=== PATIENT | male | born 1950 | race Hispanic/Latino ===

== ENCOUNTER 2017-04-22 09:15 | Day surgery (SDC) | payer OTHER ==
[~2017-04-22] VITALS: Ht 167.6 cm; Wt 85.8 kg
[~2017-04-22 09:15] MED LIST: ACET-66 PO; CYAN1TAB68 SL; GUAI600T50 PO; PANT40TA25 PO; SIME125C PO; SODIUM CHLORIDE 0.9% 1000ML 1,000 ML IV ONE
[2017-04-22 10:07] VITALS: BP 117/69
[2017-04-22] MEDS ORDERED: PROPOFOL 10 MG/ML 20ML VIAL IV ONE (11:05)
[2017-04-22] MEDS ORDERED: FENTANYL CITRATE PF 50 MCG/1 ML 2ML VIAL ONE (11:06)
[2017-04-22 11:18] VITALS: BP 112/93
== END 2017-04-22 12:06 ==
LOC: DAH 09:15 → ENDO 09:15
PROVIDERS: ATTEND Internal Medicine Gastroenterology
DX: K22.8 Other specified diseases of esophagus (principal); K21.9 Gastro-esophageal reflux disease without esophagitis; N40.0 Benign prostatic hyperplasia without lower urinary tract symptoms; K51.90 Ulcerative colitis, unspecified, without complications; Z90.49 Acquired absence of other specified parts of digestive tract; Z79.899 Other long term (current) drug therapy
CPT/HCPCS: 43239; 88305; A4606; J2704; J3010; J7030

== ENCOUNTER 2021-07-17 21:22 | Emergency (ER) | payer OTHER ==
[~2021-07-17] VITALS: Ht 167.6 cm; Wt 96.2 kg
[~2021-07-17 21:22] MED LIST changes: -PANT40TA25 PO; -SODIUM CHLORIDE 0.9% 1000ML 1,000 ML IV ONE
[2021-07-17 21:28] VITALS: BP 157/78
[2021-07-17] MEDS ORDERED: LIDOCAINE HCL-MPF 1% 2ML VIAL ONE (21:45)
[2021-07-17] MEDS ORDERED: TETANUS/DIPHTHERIA TOXOID [ADULT] 0.5 ML VIAL IM ONE (22:00)
[2021-07-17] MEDS ORDERED: LIDOCAINE HCL 1% 20 ML VIAL INJ SCH (22:00)
[2021-07-17] MEDS ORDERED: IBUPROFEN 800 MG TAB PO ONE (22:00)
== END 2021-07-17 22:29 | disposition home or self-care (01) ==
LOC: EDH 21:22
DX: S01.81XA Laceration without foreign body of other part of head, initial encounter (principal); K21.9 Gastro-esophageal reflux disease without esophagitis; Z79.1 Long term (current) use of non-steroidal anti-inflammatories (NSAID); Z88.5 Allergy status to narcotic agent; Z90.49 Acquired absence of other specified parts of digestive tract; X58.XXXA Exposure to other specified factors, initial encounter; Y93.89 Activity, other specified; Y92.89 Other specified places as the place of occurrence of the external cause; Y99.8 Other external cause status
CPT/HCPCS: 12013; 90471; 90714; 99283; J3490

== ENCOUNTER 2021-07-25 17:55 | Emergency (ER) | payer OTHER ==
[~2021-07-25] VITALS: Ht 175.3 cm; Wt 93.0 kg
[2021-07-25 19:11] VITALS: BP 136/87
== END 2021-07-25 19:13 | disposition home or self-care (01) ==
LOC: EDH 17:55
DX: S01.111D Laceration without foreign body of right eyelid and periocular area, subsequent encounter (principal); R51.9 Headache, unspecified; X58.XXXD Exposure to other specified factors, subsequent encounter
CPT/HCPCS: 70450; 72125